=== PATIENT | female | born 1970 | race American Indian/Alaskan Native ===

== ENCOUNTER 2018-03-16 13:12 | Inpatient (IN) | payer MEDICAID ==
[~2018-03-16] VITALS: Ht 167.6 cm; Wt 59.1 kg
[2018-03-16] MEDS ORDERED: LISINOPRIL PO (13:43)
[2018-03-16] MEDS ORDERED: TETanus/Pertussis (Acell)/Diphther VAC/PF (Tdap-Adult) 0.5ml syringe IM ONE (14:05)
[2018-03-16] MEDS ORDERED: normal saline 1000ML IV soln IVB ONE (14:05)
[2018-03-16] MEDS ORDERED: bacitracin 15gm ointment TP ONE (14:05)
[2018-03-16 14:18] LABS: BASOPHILS % (AUTO) 0.3 % (0-1); EOSINOPHILS % (AUTO) 0.3 % (0-6); HEMOGLOBIN 12.2 g/dl (12.0-16.0); LYMPHOCYTES # (AUTO) 1.4 X10'3 (1.1-4.8); LYMPHOCYTES % (AUTO) 20.4 % (21-51); MEAN CORPUSCULAR HEMOGLOBIN 30.5 PG (27.0-31.0); MEAN CORPUSCULAR HGB CONC 34.9 % (33.0-36.5); MEAN CORPUSCULAR VOLUME 87.5 FL (78-98); MEAN PLATELET VOLUME 8.3 FL (7.4-10.4); MONOCYTES # (AUTO) 0.4 X10'3 (0-0.9); MONOCYTES % (AUTO) 5.8 % (2-12); NEUTROPHILS % (AUTO) 73.2 % (42-75); PLATELET COUNT 308 X10'3 (140-440); RED CELL DISTRIBUTION WIDTH 13.6 % (11.5-14.5); WHITE BLOOD COUNT 6.9 X10'3 (4.5-11.0)
[2018-03-16 14:38] LABS: ALANINE AMINOTRANSFERASE 25 U/L (12-78); ALBUMIN 4.7 G/DL (3.4-5.0); ALBUMIN/GLOBULIN RATIO 1.4 (1.1-1.5); ALKALINE PHOSPHATASE 39 IU/L (46-116); ANION GAP 15 (8-16); ASPARTATE AMINO TRANSFERASE 19 U/L (10-37); BILIRUBIN,TOTAL 0.6 MG/DL (0.1-1.0); BLOOD UREA NITROGEN 39 MG/DL (7-18); BUN/CREATININE RATIO 27.1 (6.6-38.0); CALCIUM 9.8 MG/DL (8.5-10.1); CHLORIDE 104 MMOL/L (99-107); CREATININE 1.44 MG/DL (0.40-0.90); GLUCOSE 107 MG/DL (70-104); POTASSIUM 3.9 MMOL/L (3.5-5.1); SODIUM 140 MMOL/L (135-145); TOTAL CARBON DIOXIDE 21.5 MMOL/L (24-32); TOTAL PROTEIN 8.1 G/DL (6.4-8.2); eGFR 39 ML/MIN
[2018-03-16] MEDS ORDERED: acetaminophen 325mg tablet PO ONE (15:30)
[2018-03-16] MEDS: normal saline 1000ml 1,000 ML IV SCH (15:59)
[2018-03-16] MEDS ORDERED: HYDROcodone/acetaminophen 5mg/325mg tablet PO PRN (16:00)
[2018-03-16] MEDS ORDERED: bisacodyl 10mg suppository rectal RC PRN (16:00)
[2018-03-16] MEDS ORDERED: morphine 4 MG/ML inj SYRINge IV PRN ×2 (16:00)
[2018-03-16] MEDS ORDERED: metoclopramide 5 mg/ml inj IV PRN (16:00)
[2018-03-16] MEDS ORDERED: acetaminophen 325mg tablet PO PRN ×2 (16:00)
[2018-03-16] MEDS ORDERED: magnesium hydroxide 30ml (MOM) UD suspension PO PRN (16:00)
[2018-03-16] MEDS ORDERED: acetaminophen 650mg rectal suppository RC PRN (16:00)
[2018-03-16] MEDS ORDERED: HYDROmorphone 1 mg/ml syringe IV PRN ×2 (16:00)
[2018-03-16] MEDS ORDERED: mag hydrox/Alum hydrox/simeth 30ml oral suspension PO PRN (16:00)
[2018-03-16] MEDS ORDERED: diphenhydrAMINE 25mg capsule PO PRN (16:00)
[2018-03-16] MEDS ORDERED: ondansetron/PF 4mg/2ml inj IV PRN (16:00)
[2018-03-16] MEDS ORDERED: diphenhydrAMINE 50 mg/ml inj IV PRN (16:00)
[2018-03-16] MEDS ORDERED: normal saline 1000ml 1,000 ML IVB ONE (16:05)
[2018-03-16 16:27] LABS: HEMOGLOBIN A1C 5.6 % (4.5-6.2)
[2018-03-16 16:36] LABS: D-DIMER 0.22 MG/L FEU (0-0.50); INR 1.1 INR; PARTIAL THROMBOPLASTIN TIME 24 SECONDS (22-32); PROTHROMBIN TIME 10.9 SECONDS (9.0-12.0)
[2018-03-16 16:41] LABS: URINE AMPHETAMINE SCREEN NEGATIVE (Neg); URINE BARBITUATE SCREEN NEGATIVE (Neg); URINE BENZODIAZEPINES SCREEN NEGATIVE (Neg); URINE CANNABINOID SCREEN NEGATIVE (Neg); URINE COCAINE SCREEN NEGATIVE (Neg); URINE METHADONE SCREEN NEGATIVE (Neg); URINE OPIATE SCREEN NEGATIVE (Neg); URINE PHENCYCLIDINE SCREEN NEGATIVE (Neg)
[2018-03-16 17:20] LABS: CREATINE KINASE 170 U/L (26-192); LIPASE 124 U/L (73-393)
[2018-03-16 17:40] VITALS: BP 143/75
[2018-03-16 18:30] VITALS: BP_SYST 120; BP_SYST 149; BP_SYST 162; BP_DIAS 82; BP_DIAS 93; BP_DIAS 95
[2018-03-16] MEDS: docusate sod 100mg capsule PO SCH (19:21)
[2018-03-16] MEDS: heparin, porcine 5000 units/ml vial SQ SCH (19:22)
[2018-03-16] MEDS: HYDROcodone/acetaminophen 10/325mg tab PO PRN (19:29)
[2018-03-16] MEDS ORDERED: temazepam 15mg capsule PO PRN (21:00)
[2018-03-16 23:49] LABS: URINE HCG NEGATIVE (NEG)
[2018-03-17] VITALS: BP 124/79
[2018-03-17 03:12] LABS: BASOPHILS % (AUTO) 0.3 % (0-1); EOSINOPHILS # (AUTO) 0.1 X10'3 (0-0.9); EOSINOPHILS % (AUTO) 1.1 % (0-6); HEMATOCRIT 30.9 % (35.0-45.0); HEMOGLOBIN 10.6 g/dl (12.0-16.0); LYMPHOCYTES # (AUTO) 1.7 X10'3 (1.1-4.8); LYMPHOCYTES % (AUTO) 33.2 % (21-51); MEAN CORPUSCULAR HEMOGLOBIN 30.6 PG (27.0-31.0); MEAN CORPUSCULAR HGB CONC 34.5 % (33.0-36.5); MEAN CORPUSCULAR VOLUME 88.6 FL (78-98); MEAN PLATELET VOLUME 8.5 FL (7.4-10.4); MONOCYTES # (AUTO) 0.4 X10'3 (0-0.9); MONOCYTES % (AUTO) 8.5 % (2-12); NEUTROPHILS # (AUTO) 2.9 X10'3 (1.8-7.7); NEUTROPHILS % (AUTO) 56.9 % (42-75); PLATELET COUNT 267 X10'3 (140-440); RED BLOOD COUNT 3.48 X10'6 (4.20-5.60); RED CELL DISTRIBUTION WIDTH 14.1 % (11.5-14.5); WHITE BLOOD COUNT 5.1 X10'3 (4.5-11.0)
[2018-03-17] MEDS: normal saline 1000ml 1,000 ML IV SCH (03:26)
[2018-03-17 03:27] LABS: ALANINE AMINOTRANSFERASE 24 U/L (12-78); ALBUMIN 3.9 G/DL (3.4-5.0); ALBUMIN/GLOBULIN RATIO 1.3 (1.1-1.5); ALKALINE PHOSPHATASE 35 IU/L (46-116); ANION GAP 10 (8-16); ASPARTATE AMINO TRANSFERASE 16 U/L (10-37); BILIRUBIN,TOTAL 0.5 MG/DL (0.1-1.0); BLOOD UREA NITROGEN 28 MG/DL (7-18); BUN/CREATININE RATIO 30.8 (6.6-38.0); CALCIUM 8.5 MG/DL (8.5-10.1); CHLORIDE 109 MMOL/L (99-107); CREATININE 0.91 MG/DL (0.40-0.90); GLUCOSE 101 MG/DL (70-104); POTASSIUM 3.7 MMOL/L (3.5-5.1); SODIUM 142 MMOL/L (135-145); TOTAL CARBON DIOXIDE 23.2 MMOL/L (24-32); eGFR 65 ML/MIN
[2018-03-17] MEDS: HYDROcodone/acetaminophen 10/325mg tab PO PRN (03:29)
[2018-03-17 03:31] LABS: CHOL/HDL RATIO 4.3 (0.00-4.99); CHOLESTEROL 202 MG/DL (0-200); HDL CHOLESTEROL 47 MG/DL (35-60); LDL CHOLESTEROL 132 MG/DL (50-100); TRIGLYCERIDES 102 MG/DL (20-135)
[2018-03-17] MEDS ORDERED: morphine 2 MG/ML inj. syringe IV PRN ×2 (04:34→04:35)
[2018-03-17] MEDS ORDERED: pantoprazole 40mg Tablet.DR PO SCH (07:30)
[2018-03-17] MEDS: heparin, porcine 5000 units/ml vial SQ SCH (07:39)
[2018-03-17] MEDS: docusate sod 100mg capsule PO SCH (07:39)
[2018-03-17 08:00] VITALS: BP_SYST 113; BP_SYST 117; BP_SYST 131; BP_SYST 136; BP_DIAS 80; BP_DIAS 81; BP_DIAS 83; BP_DIAS 91
[2018-03-17] MEDS ORDERED: LISI1TAB11 PO ×2 (10:44→15:33)
[2018-03-17 11:00] VITALS: BP 117/81
== END 2018-03-17 17:34 | disposition home or self-care (01) | DRG 469 ==
LOC: ER 13:12 → ED HOLD 15:59 → SUR 3N 17:29
PROVIDERS: ADMIT Family Medicine; ATTEND Family Medicine
PROC: 3E0234Z Introduction of Serum, Toxoid and Vaccine into Muscle, Percutaneous Approach (ICD-10-PCS; principal; 2018-03-16)
DX: N17.9 Acute kidney failure, unspecified (principal); M41.84 Other forms of scoliosis, thoracic region; E86.0 Dehydration; R55 Syncope and collapse; F79 Unspecified intellectual disabilities; I10 Essential (primary) hypertension; S80.01XA Contusion of right knee, initial encounter; S80.02XA Contusion of left knee, initial encounter; S80.212A Abrasion, left knee, initial encounter; S80.211A Abrasion, right knee, initial encounter; W18.39XA Other fall on same level, initial encounter; Y93.89 Activity, other specified; Y92.89 Other specified places as the place of occurrence of the external cause; Y99.8 Other external cause status; Z23 Encounter for immunization
CPT/HCPCS: 36415; 70450; 71045; 73560; 80053; 80061; 80305; 81025; 82550; 83036; 83690; 83735; 83880; 84100; 84443; 84484; 85025; 85379; 85610; 85730; 87070; 90471; 90715; 93005; 93306; 93880; 96360; 99285; A6212; J1644; J7030

== ENCOUNTER 2018-09-27 07:05 | Emergency (ER) | payer MEDICAID ==
[~2018-09-27] VITALS: Ht 167.6 cm; Wt 66.9 kg
[~2018-09-27 07:05] MED LIST: LISI1TAB11 PO
[2018-09-27 07:11] VITALS: BP 118/88
[2018-09-27] MEDS ORDERED: TETRACAINE 0.5% 5 ML OPHTHALMIC DROPS RIGHTEYE ONE (08:10)
[2018-09-27] MEDS ORDERED: proparacaine 0.5% ophthalmic drops 15ml RIGHTEYE ONE (08:15)
[2018-09-27] MEDS ORDERED: ERYT1OIN6 RIGHTEYE (09:28)
== END 2018-09-27 09:41 | disposition home or self-care (01) ==
LOC: ER 07:06
DX: H10.9 Unspecified conjunctivitis (principal); Z79.899 Other long term (current) drug therapy
CPT/HCPCS: 99283

== ENCOUNTER 2019-07-20 21:15 | Emergency (ER) | payer MEDICAID ==
[~2019-07-20] VITALS: Ht 162.6 cm; Wt 59.0 kg
[~2019-07-20 21:15] MED LIST changes: -LISI1TAB11 PO; +LISI1TAB28 PO
[2019-07-20 21:27] VITALS: BP 145/93
== END 2019-07-21 00:10 | disposition left against medical advice (07) ==
LOC: ER 21:15
DX: R22.41 Localized swelling, mass and lump, right lower limb (principal); Z53.21 Procedure and treatment not carried out due to patient leaving prior to being seen by health care provider

== ENCOUNTER 2019-09-04 06:20 | Emergency (ER) | payer MEDICAID ==
[~2019-09-04] VITALS: Ht 162.6 cm; Wt 50.0 kg
[2019-09-04 06:33] VITALS: BP 144/94
[2019-09-04] MEDS ORDERED: nitrofurantoin macrocrystal 100mg capsule PO ONE (07:10)
[2019-09-04] MEDS ORDERED: nitrofurantoin macrocrystal 100mg capsule PO SCH (07:10)
[2019-09-04] MEDS ORDERED: NITR100C6 PO (07:11)
[2019-09-04 07:19] LABS: CLARITY,URINE CLEAR (Clear); COLOR,URINE YELLOW (Yellow); GLUCOSE, URINE NEGATIVE (Neg); KETONES,URINE 15 mg/dl (Neg); LEUKOCYTE ESTERASE ,URINE MODERATE (Neg); NITRITES, URINE POSITIVE (Neg); OCCULT BLOOD,URINE SMALL (Neg); PROTEIN,URINE TRACE mg/dl (Neg); UA COLLECTION TYPE CLN CATCH MIDSTREAM
[2019-09-04 07:32] LABS: BACTERIA,URINE 4+ /HPF (Neg); SQUAMOUS EPITHELIAL CELL,UR FEW /LPF (FEW); WBC,URINE TNTC /HPF (0-4)
[2019-09-04] MEDS ORDERED: pyridoxine 50mg tablet PO SCH (08:00)
== END 2019-09-04 08:04 | disposition home or self-care (01) ==
LOC: ER 06:21
DX: N39.0 Urinary tract infection, site not specified (principal); Z79.899 Other long term (current) drug therapy
CPT/HCPCS: 81001; 87077; 87088; 87186; 99283

== ENCOUNTER 2019-09-06 10:13 | Emergency (ER) | payer MEDICAID ==
[~2019-09-06] VITALS: Ht 157.5 cm; Wt 56.0 kg
[~2019-09-06 10:13] MED LIST changes: +NITR100C6 PO
[2019-09-06 10:18] VITALS: BP 108/75
[2019-09-06] MEDS ORDERED: HYDR-4383 PO (11:34)
[2019-09-06] MEDS ORDERED: SULF1TAB49 PO (11:34)
[2019-09-06] MEDS ORDERED: MUPI22OI30 TOP (11:34)
== END 2019-09-06 11:40 | disposition home or self-care (01) ==
LOC: ER 10:14
DX: J34.0 Abscess, furuncle and carbuncle of nose (principal); I10 Essential (primary) hypertension
CPT/HCPCS: 99283